=== PATIENT | female | born 1985 | race African-American/Black ===

== ENCOUNTER 2017-10-11 20:03 | Emergency (ER) | payer OTHER ==
[~2017-10-11] VITALS: Ht 162.6 cm; Wt 90.7 kg
[2017-10-11] MEDS ORDERED: NORCO 5-325 TA1 EACH PO (20:33)
[2017-10-11] MEDS ORDERED: BACTRIM DS TAB1 EACH PO (20:33)
== END 2017-10-11 20:45 | disposition home or self-care (01) ==
LOC: ER 20:03
DX: K11.20 Sialoadenitis, unspecified (principal); H92.02 Otalgia, left ear